=== PATIENT | female | born 1980 | race Caucasian/White ===

== ENCOUNTER 2016-05-06 11:43 | Emergency (ER) | payer OTHER ==
[~2016-05-06] VITALS: Ht 170.2 cm; Wt 121.3 kg
[~2016-05-06 11:43] MED LIST: ATARAX,VISTARIL25 MG PO; ATIVAN0.5 MG PO; EFFEXOR XR150 MG PO; FLONASE16 G1 BOTH NARES; INDERAL10 MG PO; LYRICA200 MG PO; OMEPRAZOLE40 M1 PO; PROMETHAZINE HC25 M1 PO; PULMICORT FLE180 MCG IH; TRAZODONE HCL50 MG PO; VENTOLIN HFA18 GM IH; VITAMIN B-12500 MC5 PO; WELLBUTRIN SR150 MG PO; ZYRTEC10 M3 PO
[2016-05-06 15:01] VITALS: BP 132/79
== END 2016-05-06 15:02 | disposition home or self-care (01) ==
LOC: EME 11:43
DX: G43.909 Migraine, unspecified, not intractable, without status migrainosus (principal); J45.909 Unspecified asthma, uncomplicated; Z87.442 Personal history of urinary calculi; Z86.14 Personal history of Methicillin resistant Staphylococcus aureus infection
CPT/HCPCS: 99281; 99285; J0780; J1100; J1200; J1885; J7030

== ENCOUNTER 2016-05-17 13:08 | Day surgery (SDC) | payer OTHER ==
[~2016-05-17] VITALS: Ht 170.2 cm; Wt 103.8 kg
[~2016-05-17 13:08] MED LIST changes: +CLONAZEPAM0.5 MG PO; +IMITREX100 MG PO; +WELLBUTRIN XL300 MG PO
== END 2016-05-17 15:15 | disposition home or self-care (01) ==
LOC: PAIN 13:08 → SDC 14:00 → PAIN 14:00
PROC: 3E0S33Z Introduction of Anti-inflammatory into Epidural Space, Percutaneous Approach (ICD-10-PCS; principal; 2016-05-17)
DX: M50.223 Other cervical disc displacement at C6-C7 level (principal); M54.12 Radiculopathy, cervical region; F41.9 Anxiety disorder, unspecified; M54.16 Radiculopathy, lumbar region; M79.7 Fibromyalgia
CPT/HCPCS: J1030; J1100; J2250; J3010

== ENCOUNTER 2016-08-28 19:54 | Emergency (ER) | payer OTHER ==
[~2016-08-28] VITALS: Ht 170.2 cm; Wt 123.3 kg
[2016-08-28 22:44] VITALS: BP 130/88
== END 2016-08-28 22:46 | disposition home or self-care (01) ==
LOC: EME 19:54
DX: S02.19XA Other fracture of base of skull, initial encounter for closed fracture (principal); Y00.XXXA Assault by blunt object, initial encounter; Y92.009 Unspecified place in unspecified non-institutional (private) residence as the place of occurrence of the external cause; Y07.03 Male partner, perpetrator of maltreatment and neglect
CPT/HCPCS: 70486; 99281; 99284

== ENCOUNTER 2017-01-02 07:52 | Day surgery (SDC) | payer OTHER ==
[~2017-01-02] VITALS: Ht 170.2 cm; Wt 124.3 kg
[~2017-01-02 07:52] MED LIST changes: +GABAPENTIN600 MG PO; +GLUCOPHAGE500 MG PO; +MOBIC15 MG PO; +MONONESSA1 EACH PO; +ZOMIG5 M1 NS
[2017-01-02 08:27] LABS: POINT-OF-CARE METER ID UU14174212
[2017-01-03] MEDS ORDERED: FIORICET 50-301 EACH PO (10:05)
[2017-01-03] MEDS ORDERED: ZOFRAN ODT4 MG PO (10:05)
== END 2017-01-02 09:25 | disposition home or self-care (01) ==
LOC: PAIN 07:52 → SDC 08:15 → PAIN 09:25
PROVIDERS: Anesthesiology Pain Medicine
DX: M54.16 Radiculopathy, lumbar region (principal); M54.5 Low back pain; G89.29 Other chronic pain; E11.9 Type 2 diabetes mellitus without complications; M79.7 Fibromyalgia; J45.909 Unspecified asthma, uncomplicated; M54.12 Radiculopathy, cervical region; M50.00 Cervical disc disorder with myelopathy, unspecified cervical region; E66.9 Obesity, unspecified; Z68.41 Body mass index [BMI] 40.0-44.9, adult; Z79.84 Long term (current) use of oral hypoglycemic drugs; Z79.891 Long term (current) use of opiate analgesic
CPT/HCPCS: 82948; J1100; J2250; J3010

== ENCOUNTER 2017-01-03 08:14 | Emergency (ER) | payer OTHER ==
[~2017-01-03] VITALS: Ht 170.2 cm; Wt 123.3 kg
[2017-01-03] MEDS ORDERED: ZOFRAN ODT4 MG PO (10:05)
[2017-01-03] MEDS ORDERED: FIORICET 50-301 EACH PO (10:05)
[2017-01-03 10:23] VITALS: BP 113/67
== END 2017-01-03 10:24 | disposition home or self-care (01) ==
LOC: EME 08:14
DX: G43.909 Migraine, unspecified, not intractable, without status migrainosus (principal); J45.909 Unspecified asthma, uncomplicated; Z86.14 Personal history of Methicillin resistant Staphylococcus aureus infection; Z87.442 Personal history of urinary calculi; Z88.8 Allergy status to other drugs, medicaments and biological substances
CPT/HCPCS: 99281; 99284; J1885